=== PATIENT | male | born 1950 | race Caucasian/White ===

== ENCOUNTER 2017-01-03 09:12 | Emergency (ER) | payer MEDICARE, BC ==
--- NOTE | 2017-01-03 09:37 | ED Physician Documentation ---
PD HPI Fall - Stated complaint Stated Complaint: GLF/ANKLE AND RIB PX - Chief complaint Chief Complaint: General - History obtained from History obtained from: Patient - History of Present Illness Mechanism of injury: Tripped Fall distance: Standing position Where injury occurred: Other (in his wifes hospital room) Timing - onset: Today Injury(ies) location: Chest, Right Lower Extremity Quality of pain: Pain Associated symptoms: No: LOC, AMS, Amnesia, Seizures, Ear drainage, Nasal drainage, Neck pain, Weakness, Paresthesias, Dyspnea, Nausea / vomiting, Hematemesis, Abdominal distension Symptoms improve with: Rest Worsens with: Movement Contributing factors: No: Anticoagulated Similar symptoms before: Has not had sx before Recently seen: Not recently seen - Additional information Additional information: 66 y/o male with a history of diabetes, htn and COPD was visiting his in the hospital and his Croc stuck to the ground and he was propelled forward and fell onto his right side shoving his elbow into his right chest wall. He has pain in his right ankle as well. He is able to bear weight. Review of Systems Constitutional: denies: Fever Eyes: denies: Decreased vision Ears: denies: Ear pain Nose: denies: Congestion Cardiac: reports: Chest pain / pressure Respiratory: denies: Dyspnea, Cough GI: denies: Vomiting PD PAST MEDICAL HISTORY - Past Medical History Cardiovascular: Congestive heart failure, Hypertension, Angina, [place], Murmur Respiratory: COPD Neuro: None Endocrine/Autoimmune: Type 2 diabetes GI: GERD : None HEENT: Chronic hearing loss Psych: Depression, Panic attacks Musculoskeletal: Osteoarthritis, Chronic back pain Derm: Other - Past Surgical History Past Surgical History: Yes General: Hiatal hernia repair Ortho: Knee replacement, Arthroscopic surgery, Spine surgery, Other HEENT: Cataracts Derm: Skin grafts, Skin cancer surgery - Present Medications Home Medications: Ambulatory Orders Medication Instructions Recorded Confirmed Fosinopril Sodium 10 mg PO DAILY 01/11/13 01/03/17 Insulin Glargine [Lantus Solostar] 30 unit SQ BID 01/11/13 01/03/17 Magnesium Oxide [Mag Ox] 400 mg PO DAILY 01/11/13 01/03/17 Methadone HCl 20 mg PO QID 01/11/13 01/03/17 Metoprolol Succinate [Toprol Xl] 100 mg PO DAILY 01/11/13 01/03/17 Potassium Chloride [K-Dur] 40 meq PO BIDWM 01/11/13 01/03/17 Torsemide 100 mg PO DAILY 01/11/13 01/03/17 hydroCHLOROthiazide [Hydrodiuril] 25 mg PO DAILY 01/11/13 01/03/17 Clopidogrel Bisulfate [Plavix] 75 mg PO DAILY 03/28/15 01/03/17 HYDROmorphone [Dilaudid] 8 - 16 mg PO Q8HR PRN 03/28/15 01/03/17 Insulin Lispro [Humalog] 4 - 12 unit SQ TID 03/28/15 01/03/17 Pantoprazole [Protonix] 40 mg PO DAILY 03/28/15 01/03/17 Albuterol 1 - 2 puffs INH Q4HR PRN 08/30/15 01/03/17 - Allergies Allergies/Adverse Reactions: Allergies Allergy/AdvReac Type Severity Reaction Status Date / Time aspirin Allergy Severe Edema Verified 01/03/17 09:45 Penicillins Allergy Severe Edema Verified 01/03/17 09:45 NSAIDS (Non-Steroidal Allergy Intermediate Edema Verified 01/03/17 09:45 Anti-Inflamma - Social History Does the pt smoke?: No Smoking Status: Former smoker Does the pt drink ETOH?: No Does the pt have substance abuse?: No - Immunizations Immunizations are current?: Yes - POLST Patient has POLST: No POLST Status: Full Code PD ED PE NORMAL - Vitals Vital signs reviewed: Yes (hypertensive) - General General: Alert and oriented X 3, Well developed/nourished, Other (The patient appears to be splinting in pain with breathing ) - HEENT HEENT: Atraumatic, PERRL - Neck Neck: Supple, no meningeal sign - Cardiac Cardiac: RRR, No murmur - Respiratory Respiratory: No respiratory distress, Clear bilaterally, Other (There is specific point tenderness to the right chest wall ) - Back Back: No CVA TTP, No spinal TTP - Derm Derm: Normal color, Warm and dry, No rash - Extremities Extremities: No deformity, Other (There is edema bilaterally and there are compression stockings in place. The swelling on the right is worse than the left and this is chronic. There is some pain to dorsiflexion and some pain to the anterior ankle as well. ) - Neuro Neuro: No motor deficit, No sensory deficit - Psych Psych: Normal mood, Normal affect Results - Vitals Vitals: Vital Signs - 24 hr 01/03/17 01/03/17 09:24 11:43 Temperature 36.6 C Heart Rate 84 67 Respiratory 18 20 Rate Blood Pressure 146/76 H 108/66 O2 Saturation 98 96 Oxygen O2 Source Room air - Rads (name of study) right ankle Radiology: Prelim report reviewed (Impression: 1. No fracture identified. 2. Extensive degenerative changes in the mid and hindfoot.), EMP read indepedently , See rad report With PA chest right Radiology: Prelim report reviewed (Impression: No rib fracture.), EMP read indepedently, See rad report Right shoulder Radiology: Prelim report reviewed (Impression: 1. Amorphous calcification at the insertion site of the rotator cuff to the greater tuberosity which may represent hydroxyapatite deposition disease. 2. No acute fracture identified. 3. Minimal degenerative changes of the acromioclavicular joint.), EMP read indepedently, See rad report PD MEDICAL DECISION MAKING - ED course Complexity details: reviewed old records, reviewed results, re-evaluated patient , considered differential, d/w patient, d/w family ED course: 66 y/o male with GLF with a rib contusion, ankle sprain and shoulder sprain is able to ambulate with his cane in his other hand. Departure - Departure Disposition: 01 Home, Self Care Clinical Impression: Chest wall contusion Qualifiers: Encounter type: initial encounter Laterality: right Qualified Code(s): S20.211A - Contusion of right front wall of thorax, initial encounter Ankle sprain Qualifiers: Encounter type: initial encounter Involved ligament of ankle: calcaneofibular ligament Laterality: right Qualified Code(s): S93.411A - Sprain of calcaneofibular ligament of right ankle, initial encounter Shoulder sprain Qualifiers: Encounter type: initial encounter Shoulder sprain type: unspecified sprain Laterality: right Qualified Code(s): S43.401A - Unspecified sprain of right shoulder joint, initial encounter Condition: Stable Instructions: ED Contusion Chest Wall, ED Sprain Ankle, ED Contusion Rib Follow-Up: Kyung Pimentel PA [Primary Care Provider] -
[2017-01-03] MEDS ORDERED: ACETAMINOPHEN 500 MG TABLET PO STA (10:00)
[2017-01-03] MEDS ORDERED: ACETAMINOPHEN 500 MG TABLET PO ONE (10:04)
--- NOTE | 2017-01-03 11:22 | XRAY Preliminary Report ---
Exam: XR Shoulder 3 View RT IMPRESSION: 1. Amorphous calcification at the insertion site of the rotator cuff on the greater tuberosity which may represent hydroxyapatite deposition disease. 2. No acute fracture identified. 3. Minimal degenerative changes in the acromioclavicular joint. [facility] SITE ID: [id number]
--- NOTE | 2017-01-03 11:24 | XRAY Preliminary Report ---
Exam: XR Ribs w/PA Chest RT IMPRESSION: No rib fracture. [facility] SITE ID: [id number]
--- NOTE | 2017-01-03 11:24 | XRAY Report ---
EXAM: RIGHT SHOULDER RADIOGRAPHY EXAM DATE: 01/03/2017 11:06 AM. CLINICAL HISTORY: Fall restricted ROM. COMPARISON: None. TECHNIQUE: 4 views. FINDINGS: Bones: Normal. No fracture or bone lesion. Joints: Minimal degenerative changes in the acromioclavicular joint. Soft tissues: Amorphous calcification at the insertion site of the rotator cuff on the greater tubero sity. IMPRESSION: 1. Amorphous calcification at the insertion site of the rotator cuff on the greater tuberosity which may represent hydroxyapatite deposition disease. 2. No acute fracture identified. 3. Minimal degenerative changes in the acromioclavicular joint. [facility] Referring Provider Line: [phone] SITE ID: [id number]
--- NOTE | 2017-01-03 11:25 | XRAY Preliminary Report ---
Exam: XR Ankle 3 View RT IMPRESSION: 1. No fracture identified. 2. Extensive degenerative changes in the mid and hindfoot. [facility] SITE ID: [id number]
--- NOTE | 2017-01-03 11:26 | XRAY Report ---
EXAM: RIGHT RIB AND PA CHEST RADIOGRAPHY EXAM DATE: 01/03/2017 11:05 AM. CLINICAL HISTORY: Fall rib pain. COMPARISON: None. TECHNIQUE: 2 views. FINDINGS: Bones: Normal. No fracture or bone lesion. Lungs: No focal opacities evident. No pneumothorax or pleural effusions. Mediastinum: Heart and cardiomediastinal contours are unremarkable. Other: Amorphous calcifications at the insertion site of the rotator cuff on the greater tuberosity. Vertical striations throughout the PA chest radiograph are thought to be artifactual. IMPRESSION: No rib fracture. [facility] Referring Provider Line: [phone] SITE ID: [id number]
--- NOTE | 2017-01-03 11:28 | XRAY Report ---
EXAM: RIGHT ANKLE RADIOGRAPHY EXAM DATE: 01/03/2017 11:05 AM. CLINICAL HISTORY: Fall ankle and foot pain. COMPARISON: None. TECHNIQUE: 3 views. FINDINGS: Bones: Normal. No fractures or bone lesions. Joints: Degenerative changes at the tibiotalar joint, talar navicular joint and midfoot. Soft Tissues: Soft tissue swelling about the ankle. IMPRESSION: 1. No fracture identified. 2. Extensive degenerative changes in the mid and hindfoot. [facility] Referring Provider Line: [phone] SITE ID: [id number]
[2017-01-03 11:43] VITALS: BP 108/66
== END 2017-01-03 13:18 | disposition home or self-care (01) ==
LOC: ED 09:12
DX: S20.211A Contusion of right front wall of thorax, initial encounter (principal); S93.411A Sprain of calcaneofibular ligament of right ankle, initial encounter; S43.401A Unspecified sprain of right shoulder joint, initial encounter; I10 Essential (primary) hypertension; E11.9 Type 2 diabetes mellitus without complications; Z87.891 Personal history of nicotine dependence; W01.10XA Fall on same level from slipping, tripping and stumbling with subsequent striking against unspecified object, initial encounter; Y92.230 Patient room in hospital as the place of occurrence of the external cause; Z79.4 Long term (current) use of insulin
CPT/HCPCS: 71101; 73030; 73610; 99283; 99284; A9270

== ENCOUNTER 2017-01-09 11:14 | Outpatient (CLI) | payer MEDICARE, BC | END 2017-01-09 11:15 | disposition home or self-care (01) | LOC: DI 11:14 | PROVIDERS: ATTEND Internal Medicine | DX: Z01.810 Encounter for preprocedural cardiovascular examination (principal); I50.32 Chronic diastolic (congestive) heart failure | CPT/HCPCS: 93306 ==

== ENCOUNTER 2017-05-14 10:46 | Outpatient (CLI) | payer MEDICARE, BC ==
--- NOTE | 2017-05-14 13:00 | XRAY Report ---
TWO VIEW CHEST: 05/14/2017 CLINICAL INDICATION: COPD. COMPARISON: 01/03/2017. FINDINGS: Frontal and lateral views of the chest demonstrate a normal cardiac silhouette. The lungs are hyperinflated, but clear. No effusion or pneumothorax is present. IMPRESSION: COPD. NO EVIDENCE OF ACUTE CARDIOPULMONARY DISEASE. JOB #: [id number] EXT JOB #:[id number]
== END 2017-05-14 10:47 | disposition home or self-care (01) ==
LOC: DI 10:46
PROVIDERS: ATTEND Physician Assistant
DX: J44.9 Chronic obstructive pulmonary disease, unspecified (principal)
CPT/HCPCS: 71020

== ENCOUNTER 2017-05-28 13:20 | Outpatient (CLI) | payer MEDICARE, BC | END 2017-05-28 13:21 | disposition home or self-care (01) | LOC: SC 13:20 | PROVIDERS: ATTEND Internal Medicine Pulmonary Disease | DX: G47.33 Obstructive sleep apnea (adult) (pediatric) (principal) | CPT/HCPCS: 99213; G0463; 99212 ==

== ENCOUNTER 2017-07-25 15:03 | Emergency (ER) | payer MEDICARE, BC ==
--- NOTE | 2017-07-25 15:48 | ED Physician Documentation ---
History of Present Illness - Stated complaint Stated Complaint: RT LEG CALF PX/SWELLING - Chief complaint Chief Complaint: Resp - History obtained from History obtained from: Patient, Family - History of Present Illness Timing: How many weeks ago (2) Pain level max: 3 Pain level now: 3 Improved by: rest Worsened by: walking - Additonal information Additional information: Patient is a 66-year-old male who presents to the emergency department with right lower extremity swelling status post ankle surgery 4 months ago. He states this is increased over the past 2 weeks. Sent in by his primary care provider to rule out DVT. He is also had some mild chest pain and shortness of breath over the same time. Concern for possible pulmonary embolism. He is unsure if he has a history of congestive heart failure or not. Review of Systems Ten Systems: 10 systems reviewed and negative Constitutional: denies: Fever, Chills Ears: denies: Ear pain Nose: denies: Rhinorrhea / runny nose, Congestion Throat: denies: Sore throat Cardiac: denies: Chest pain / pressure Respiratory: denies: Cough GI: denies: Nausea, Vomiting, Diarrhea Skin: denies: Rash Musculoskeletal: denies: Neck pain, Back pain Neurologic: denies: Headache PD PAST MEDICAL HISTORY - Past Medical History Cardiovascular: Congestive heart failure, Hypertension, Angina, [place], Murmur Respiratory: COPD Neuro: None Endocrine/Autoimmune: Type 2 diabetes GI: GERD : None HEENT: Chronic hearing loss Psych: Depression, Panic attacks Musculoskeletal: Osteoarthritis, Chronic back pain Derm: Other - Past Surgical History Past Surgical History: Yes General: Hiatal hernia repair Ortho: Knee replacement, Arthroscopic surgery, Spine surgery, Other HEENT: Cataracts Derm: Skin grafts, Skin cancer surgery - Present Medications Home Medications: Ambulatory Orders Medication Instructions Recorded Confirmed Fosinopril Sodium 10 mg PO DAILY 01/11/13 07/25/17 Insulin Glargine [Lantus Solostar] 42 unit SQ BID 01/11/13 07/25/17 Methadone HCl 20 mg PO QID 01/11/13 07/25/17 Metoprolol Succinate [Toprol Xl] 100 mg PO DAILY 01/11/13 07/25/17 Potassium Chloride [K-Dur] 40 meq PO BIDWM 01/11/13 07/25/17 Torsemide 100 mg PO DAILY 01/11/13 07/25/17 Clopidogrel Bisulfate [Plavix] 75 mg PO DAILY 03/28/15 07/25/17 HYDROmorphone [Dilaudid] 8 - 16 mg PO Q8HR PRN 03/28/15 07/25/17 Insulin Lispro [Humalog] 4 - 12 unit SQ TID 03/28/15 07/25/17 Pantoprazole [Protonix] 40 mg PO DAILY 03/28/15 07/25/17 Albuterol 1 - 2 puffs INH Q4HR PRN 08/30/15 07/25/17 - Allergies Allergies/Adverse Reactions: Allergies Allergy/AdvReac Type Severity Reaction Status Date / Time aspirin Allergy Severe Edema Verified 07/25/17 15:13 Penicillins Allergy Severe Edema Verified 07/25/17 15:13 NSAIDS (Non-Steroidal Allergy Intermediate Edema Verified 07/25/17 15:13 Anti-Inflamma - Social History Does the pt smoke?: No Smoking Status: Never smoker Does the pt drink ETOH?: No Does the pt have substance abuse?: No - Immunizations Immunizations are current?: Yes - POLST Patient has POLST: No POLST Status: Full Code PD ED PE NORMAL - Vitals Vital signs reviewed: Yes - General General: Alert and oriented X 3 - HEENT HEENT: Moist mucous membranes - Neck Neck: Supple, no meningeal sign - Cardiac Cardiac: RRR, Strong equal pulses - Respiratory Respiratory: No respiratory distress, Clear bilaterally - Abdomen Abdomen: Soft, Non tender, Non distended - Derm Derm: Warm and dry - Extremities Extremities: Other (2+ non-pitting edema to the RLE.) - Neuro Neuro: Alert and oriented X 3 - Psych Psych: Normal mood, Normal affect Results - Vitals Vitals: Vital Signs - 24 hr 07/25/17 07/25/17 15:11 17:13 Temperature 36.9 C 36.8 C Heart Rate 82 75 Respiratory 20 18 Rate Blood Pressure 144/71 H 119/64 O2 Saturation 97 98 Oxygen O2 Source Room air - EKG (time done) 1518 Rate: Rate (enter#) (83) Rhythm: NSR, Other (PVC) [place]: Normal Intervals: Normal NM QRS: Normal Ischemia: Normal ST segments - Labs Labs: Laboratory Tests 07/25/17 07/25/17 07/25/17 15:35 15:35 15:35 WBC 7.7 RBC 4.68 L Hgb 10.3 L Hct 31.8 L MCV 67.8 L MCH 22.0 L MCHC 32.4 RDW 19.7 H Plt Count 280 MPV 7.3 L Neut # 5.3 Lymph # 1.7 [place] # 0.4 Eos # 0.2 Baso # 0.1 Absolute Nucleated RBC 0.00 Nucleated RBC % 0.0 Manual Slide Review Indicated Platelet Estimate NORMAL (130-450,000) Platelet Morphology NORMAL APPEARANCE RBC Morph Micro Appear 2+ OVALOCYTES Sodium 139 Potassium 3.5 Chloride 96 L Carbon Dioxide 33 H Anion Gap 10.0 BUN 20 Creatinine 0.8 Estimated GFR (MDRD) 97 Glucose 135 H Calcium 8.9 Total Bilirubin 0.7 AST 20 ALT 13 Alkaline Phosphatase 103 Troponin I < 0.04 B-Natriuretic Peptide Total Protein 7.2 Albumin 3.7 Globulin 3.5 Albumin/Globulin Ratio 1.1 Lipase 20 L 07/25/17 15:35 WBC RBC Hgb Hct MCV MCH MCHC RDW Plt Count MPV Neut # Lymph # [place] # Eos # Baso # Absolute Nucleated RBC Nucleated RBC % Manual Slide Review Platelet Estimate Platelet Morphology RBC Morph Micro Appear Sodium Potassium Chloride Carbon Dioxide Anion Gap BUN Creatinine Estimated GFR (MDRD) Glucose Calcium Total Bilirubin AST ALT Alkaline Phosphatase Troponin I B-Natriuretic Peptide 18 Total Protein Albumin Globulin Albumin/Globulin Ratio Lipase - Rads (name of study) CTPA Radiology: Prelim report reviewed, EMP read contemporaneously, See rad report ( Negative for pulmonary embolism at this time. Unremarkable aorta. ) RLE US Radiology: Prelim report reviewed, EMP read contemporaneously, See rad report ( No evidence for deep venous thrombosis. Bakers cyst) PD MEDICAL DECISION MAKING - ED course Complexity details: reviewed results, re-evaluated patient, considered differential, d/w patient ED course: Patient is a 66-year-old male who presents to the emergency department with right lower extremity swelling as well as mild dyspnea for the past few weeks. Sent in to rule out DVT and PE. CT angiogram is negative. Duplex ultrasound reveals a Andrews's cyst behind the right knee. No DVT. He will continue supportive care and follow-up with his doctor. No evidence of heart failure as well. Patient counseled regarding signs and symptoms for which I believe and urgent re-evaluation would be necessary. Patient with good understanding of and agreement to plan and is comfortable going home at this time This document was made in part using voice recognition software. While efforts are made to proofread this document, sound alike and grammatical errors may occur. Departure - Departure Disposition: 01 Home, Self Care Clinical Impression: Peripheral edema Dyspnea Qualifiers: Dyspnea type: unspecified Qualified Code(s): R06.00 - Dyspnea, unspecified Condition: Good Instructions: ED Edema Legs Bilateral Follow-Up: Kyung Pimentel PA [Primary Care Provider] - Within 1 week Comments: Your blood work, CAT scan and ultrasound do not reveal any significant abnormalities that would be causing your symptoms. Follow-up with your doctor for further evaluation and care. Discharge Date/Time: 07/25/17 18:20
[2017-07-25 15:50] LABS: BASOPHILS # (AUTO) 0.1 10^3/uL (0.0-0.1); BASOPHILS % (AUTO) 0.9 %; EOSINOPHILS # (AUTO) 0.2 10^3/uL (0.0-0.7); EOSINOPHILS % (AUTO) 2.3 %; HGB - HEMOGLOBIN 10.3 g/dL (14.0-18.0); LYMPHOCYTES # (AUTO) 1.7 10^3/uL (1.5-3.5); LYMPHOCYTES % (AUTO) 22.4 %; MEAN CORPUSCULAR HGB CONC 32.4 g/dL (32.0-36.0); MEAN CORPUSCULAR VOLUME 67.8 fL (80.0-94.0); MEAN PLATELET VOLUME 7.3 fL (7.4-11.4); MONOCYTES # (AUTO) 0.4 10^3/uL (0.0-1.0); MONOCYTES % (AUTO) 4.7 %; NEUTROPHILS # (AUTO) 5.3 10^3/uL (1.5-6.6); NEUTROPHILS % (AUTO) 69.7 %; PLT - PLATELET COUNT 280 10^3/uL (130-450); RED BLOOD COUNT 4.68 10^6/uL (4.70-6.10); RED CELL DISTRIBUTION WIDTH 19.7 % (12.0-15.0); WHITE BLOOD COUNT 7.7 x10^3/uL (4.8-10.8)
[2017-07-25 15:59] LABS: ALBUMIN 3.7 g/dL (3.2-5.5); ALBUMIN/GLOBULIN RATIO 1.1 (1.0-2.2); BILIRUBIN,TOTAL 0.7 mg/dL (0.2-1.0); CALCIUM 8.9 mg/dL (8.5-10.3); CREATININE 0.8 mg/dL (0.6-1.2); TOTAL PROTEIN 7.2 g/dL (6.7-8.2)
[2017-07-25] MEDS ORDERED: IOPAMIDOL-300 100 ML VIAL ONE (16:03)
[2017-07-25 16:16] LABS: PLATELET ESTIMATE, MANUAL NORMAL (130-450,000) (NORMAL); PLATELET MORPHOLOGY NORMAL APPEARANCE (NORMAL)
[2017-07-25] MEDS ORDERED: IOPAMIDOL-300 100 ML VIAL IVP ONE (16:29)
--- NOTE | 2017-07-25 16:50 | CT Report ---
EXAM: CT ANGIOGRAM CHEST EXAM DATE: 07/25/2017 04:30 PM. CLINICAL HISTORY: Chest pain, dyspnea s/p surgery. COMPARISON: None. TECHNIQUE: Routine helical imaging was performed through the chest in the pulmonary arterial phase. I V Contrast: 80 cc Isovue 300. Reconstructions: Sagittal, coronal, and 3-D MIP. In accordance with CT protocol optimization, one or more of the following dose reduction techniques w ere utilized for this exam: automated exposure control, adjustment of mA and/or KV based on patient s ize, or use of iterative reconstructive technique. FINDINGS: Pulmonary Arteries: Diagnostic quality: Adequate through the segmental arteries. No evidence for acute or chronic pulmona ry emboli. Cannot exclude lesions of smaller vessels. Mild dilation of main pulmonary artery measurin g 3.4 cm, compatible with pulmonary artery hypertension. RV/LV is within normal limits. There is no interventricular septal bowing. There is no reflux of cont rast material in the IVC. Lungs/Pleura: No definite localized infiltrate, consolidation, effusion, or pneumothorax. Mediastinum: Mild cardiomegaly. No pericardial effusion. No coronary calcification. No lymphadenopath y. Thoracic Aorta: Unremarkable. Upper Abdomen: Left renal cysts. Otherwise unremarkable. Other: None. IMPRESSION: Negative for pulmonary embolism at this time. Unremarkable aorta. [facility] Referring Provider Line: [phone] SITE ID: [id number]
[2017-07-25 17:18] VITALS: BP 119/64
--- NOTE | 2017-07-25 17:38 | Ultrasound Report ---
EXAM: RIGHT LOWER EXTREMITY VENOUS ULTRASOUND EXAM DATE: 07/25/2017 05:04 PM. CLINICAL HISTORY: RLE swelling s/p R ankle surgery. COMPARISON: None. TECHNIQUE: Real-time sonographic vascular imaging was performed by the reserve operator through the lower extremity utilizing both color-flow and Doppler spectral analysis. Multiple outbound sales representative static bernabe ges were saved for review. FINDINGS: Common Femoral Vein (CFV): Normal. CFV-GSV Junction: Normal. Profunda Femoral Vein (PFV): Normal. Femoral Vein (FV) Prox: Normal. Femoral Vein (FV) Mid: Normal. Femoral Vein (FV) Dist: Normal. Popliteal Vein: Normal. Posterior Tibial Veins: Limited visualization. Peroneal Veins: Limited visualization. Other: Popliteal fluid collection noted 7.0 x 1.7 x 1.8 cm. IMPRESSION: 1. No evidence for deep venous thrombosis. 2. Andrews's cyst. [facility] Referring Provider Line: [phone] SITE ID: [id number]
== END 2017-07-25 18:20 | disposition home or self-care (01) ==
LOC: ED 15:03
DX: R60.9 Edema, unspecified (principal); R06.00 Dyspnea, unspecified; M71.21 Synovial cyst of popliteal space [Baker], right knee; I11.0 Hypertensive heart disease with heart failure; I50.9 Heart failure, unspecified; E11.9 Type 2 diabetes mellitus without complications; Z79.4 Long term (current) use of insulin; I25.2 Old myocardial infarction; J44.9 Chronic obstructive pulmonary disease, unspecified; K21.9 Gastro-esophageal reflux disease without esophagitis; M19.90 Unspecified osteoarthritis, unspecified site; Z85.828 Personal history of other malignant neoplasm of skin
CPT/HCPCS: 36415; 71275; 80053; 83690; 83880; 84484; 85025; 93005; 93971; 99283; 99284; Q9967

== ENCOUNTER 2017-09-26 20:52 | Outpatient (CLI) | payer MEDICARE, BC | END 2017-09-26 20:53 | disposition home or self-care (01) | LOC: SC 20:52 | PROVIDERS: ATTEND Internal Medicine Pulmonary Disease | DX: G47.33 Obstructive sleep apnea (adult) (pediatric) (principal) | CPT/HCPCS: 95810 ==

== ENCOUNTER 2017-10-23 09:03 | Outpatient (CLI) | payer MEDICARE, BC | END 2017-10-23 09:04 | disposition home or self-care (01) | LOC: SC 09:03 | PROVIDERS: ATTEND Nurse Practitioner Family | DX: G47.33 Obstructive sleep apnea (adult) (pediatric) (principal) | CPT/HCPCS: 99214; G0463; 99212 ==

== ENCOUNTER 2017-11-29 10:18 | Outpatient (CLI) | payer MEDICARE, BC | END 2017-11-29 10:19 | disposition home or self-care (01) | LOC: SC 10:18 | PROVIDERS: ATTEND Nurse Practitioner Family | DX: G47.33 Obstructive sleep apnea (adult) (pediatric) (principal) | CPT/HCPCS: 99214; G0463; 99212 ==

== ENCOUNTER 2017-12-21 10:05 | Outpatient (CLI) | payer MEDICARE, BC ==
[2017-12-21 10:45] LABS: % IRON SATURATION 6 % (20-50); IRON 28 ug/dL (45-182); TOTAL IRON BINDING CAPACITY 447 ug/dL (250-450); TRANSFERRIN 319 mg/dL (180-329)
== END 2017-12-21 10:06 | disposition home or self-care (01) ==
LOC: LAB 10:05
PROVIDERS: ATTEND Internal Medicine Cardiovascular Disease
DX: D64.9 Anemia, unspecified (principal)
CPT/HCPCS: 36415; 82728; 83540; 84466

== ENCOUNTER 2018-02-16 08:48 | Outpatient (CLI) | payer MEDICARE, BC ==
[2018-02-16 09:19] LABS: CALCIUM 8.8 mg/dL (8.5-10.3)
== END 2018-02-16 08:49 | disposition home or self-care (01) ==
LOC: LAB 08:48
PROVIDERS: ATTEND Internal Medicine Cardiovascular Disease
DX: I50.9 Heart failure, unspecified (principal)
CPT/HCPCS: 36415; 80048

== ENCOUNTER 2018-08-21 09:51 | Outpatient (CLI) | payer MEDICARE, BC ==
[2018-08-21] MEDS ORDERED: REGADENOSON 0.4 MG/5 ML SYRINGE IVP ONE ×2 (12:17→14:19)
--- NOTE | 2018-08-21 13:41 | CARDIAC PROCEDURE NOTE ---
DATE OF SERVICE: 08/21/2018 Physician: Paula Trujillo MD, [facility] ORDERING PROVIDER: Toby Argueta M.D. INDICATIONS: Palpitations, chest pain, fatigue. CARDIAC RISK FACTORS: Obesity, male gender, hypertension, diabetes, family history of heart disease, remote smoker. DESCRIPTION OF PROCEDURE: After signing informed consent, the patient underwent a Lexiscan pharmaceutical stress test with nuclear myocardial perfusion imaging. He had brief flushing, lightheadedness, nausea, and shortness of breath. He had no chest pain. He did not complain of "palpitations." Resting heart rate: 76. Peak heart rate: 91. Resting blood pressure: 128/66. Peak blood pressure: 170/70. RESTING EKG: Normal sinus rhythm, left atrial enlargement, rare PVC, early repolarization. EKG AT [facility]: No new ST segment or T-wave changes. SUMMARY: 1. Abnormal resting EKG. 2. No ischemic changes by EKG criteria on this pharmacologic stress test. 3. Nuclear images reported separately. TD: 08/21/2018 13:07 ANASTASIA
--- NOTE | 2018-08-21 15:01 | Nuclear Medicine Report ---
Reason: PALPITATIONS, FATIGUE Procedure Date: 08/21/2018 Accession Number: [id number] / [id number] Procedure: NM - Myocardial Perfusion STR/RST CPT Code: FULL RESULT: EXAM: SINGLE-ISOTOPE PHARMACOLOGICAL STRESS TEST WITH REGADENOSON. SINGLE-ISOTOPE AND ONE-DAY REST/STRESS MYOCARDIAL PERFUSION SCANS WITH TOMOGRAPHIC IMAGING, QUANTITATIVE ANALYSIS, WALL MOTION ANALYSIS AND CALCULATION OF EJECTION FRACTION. EXAM DATE: 08/21/2018 02:21 PM. CLINICAL HISTORY: PALPITATIONS, FATIGUE. COMPARISON: None available. TECHNIQUE: After the intravenous administration of 9.5 mCi of Tc-99m sestamibi, a rest myocardial perfusion scan was done with tomography. Motion correction was applied when appropriate. After an appropriate delay, pharmacological stress was performed with the infusion of 0.4 mg regadenoson per protocol. According to protocol, 40.2 mCi of Tc-99m sestamibi was injected for stress myocardial perfusion scan. Motion correction was applied when appropriate. Gated tomographic images were obtained for wall motion analysis and computation of left ventricular ejection fraction. FINDINGS: Images showed decreased activity in the apex and distal inferior wall, without significant change between the rest and stress images. Computer analysis: Summed stress score 6 Summed rest score 5 Summed difference score 1 Wall motion analysis demonstrates no focal wall motion abnormality. The left ventricular end-diastolic volume is 161 cc. The left ventricular end-systolic volume is 85 cc. The left ventricular ejection fraction is calculated to be 53%. IMPRESSION: 1. Fixed defect in the apex and distal inferior wall, old infarct versus diaphragm attenuation artifact. No significant convincing reversible perfusion defects. 2. Left ventricular ejection fraction of 53%. 3. Normal segmental and global wall motion. 4. Normal left ventricular cavity size, no change with stress. 5. Based on computer analysis, mildly abnormal exam with no ischemia. [facility]
== END 2018-08-21 09:52 | disposition home or self-care (01) ==
LOC: DI 09:51
PROVIDERS: ATTEND Internal Medicine Cardiovascular Disease
DX: R94.39 Abnormal result of other cardiovascular function study (principal); R00.2 Palpitations; R53.83 Other fatigue; E66.9 Obesity, unspecified; I10 Essential (primary) hypertension; E11.9 Type 2 diabetes mellitus without complications; Z87.891 Personal history of nicotine dependence; Z82.49 Family history of ischemic heart disease and other diseases of the circulatory system
CPT/HCPCS: 78452; 93017; A9500; J2785

== ENCOUNTER 2018-12-27 07:16 | Outpatient (CLI) | payer MEDICARE, BC ==
--- NOTE | 2018-12-27 19:38 | Ultrasound Report ---
Reason: LT LOWER LIMB SWELLING, RT LOWER LIMB PAIN Procedure Date: 12/27/2018 Accession Number: [id number] / [id number] Procedure: US - Duplex Ext Veins Bilateral CPT Code: FULL RESULT: EXAM: BILATERAL LOWER EXTREMITY VENOUS ULTRASOUND EXAM DATE: 12/27/2018 07:30 AM. CLINICAL HISTORY: LT LOWER LIMB SWELLING, RT LOWER LIMB PAIN. COMPARISON: None. TECHNIQUE: Real-time sonographic vascular imaging was performed by the heating element repairer through the lower extremities utilizing both color-flow and Doppler spectral analysis. Multiple commissary representative static images were saved for review. FINDINGS: Right: Common Femoral Vein (CFV): Normal. CFV-GSV Junction: Normal. Profunda Femoral Vein (PFV): Normal. Femoral Vein (FV) Prox: Normal. Femoral Vein (FV) Mid: Normal. Femoral Vein (FV) Dist: Normal. Popliteal Vein: Normal. Posterior Tibial Veins: Normal. Peroneal Veins: Normal. Left: Common Femoral Vein (CFV): Normal. CFV-GSV Junction: Normal. Profunda Femoral Vein (PFV): Normal. Femoral Vein (FV) Prox: Normal. Femoral Vein (FV) Mid: Normal. Femoral Vein (FV) Dist: Normal. Popliteal Vein: Normal. Posterior Tibial Veins: Normal. Peroneal Veins: Normal. Other: None. IMPRESSION: No evidence for deep venous thrombosis bilaterally. [facility]
--- NOTE | 2018-12-28 14:13 | Ultrasound Report ---
Reason: LT LOWER LIMB SWELLING, RT LOWER LIMB PAIN Procedure Date: 12/27/2018 Accession Number: [id number] Procedure: US - Duplex Lwr Ext Arterial Bilat CPT Code: FULL RESULT: EXAM: BILATERAL LOWER EXTREMITY ARTERIAL DOPPLER ULTRASOUND EXAM DATE: 12/27/2018 08:02 AM. CLINICAL HISTORY: Left lower limb swelling, right lower limb pain. COMPARISON: 12/27/2018 8:38 AM. 12/27/2018 8:31 AM. 12/27/2018 7:30 AM. TECHNIQUE: Real-time sonographic vascular imaging was performed by the sanforizer, utilizing color-flow, Doppler flow, and spectral analysis. Multiple malt liquors sales representative static images were saved for review. FINDINGS: No significant visualized plaque. Mild elevation of systolic flow velocities in the right common femoral artery which otherwise shows triphasic waveform. Right Leg: DIRECTOR OF ARCHITECTURE: PSV 142 cm/sec. Triphasic waveform. PSFA: PSV 112 cm/sec. Triphasic waveform. MSFA: PSV 106 cm/sec. Triphasic waveform. DSFA: PSV 84 cm/sec. Triphasic waveform. PFA: PSV 92 cm/sec. Triphasic waveform. POP: PSV 91 cm/sec. Triphasic waveform. ARNIE: PSV 97 cm/sec. Triphasic waveform. CLOTH COVERED HELMET PULLER: PSV 134 cm/sec. Triphasic waveform. PER: PSV 88 cm/sec. Triphasic waveform. DPA: PSV 80 cm/sec. Triphasic waveform. Left Leg: DIRECTOR OF ARCHITECTURE: PSV 122 cm/sec. Triphasic waveform. PSFA: PSV 119 cm/sec. Triphasic waveform. MSFA: PSV 142 cm/sec. Triphasic waveform. DSFA: PSV 109 cm/sec. Triphasic waveform. PFA: PSV 121 cm/sec. Biphasic waveform. POP: PSV 104 cm/sec. Triphasic waveform. ARNIE: PSV 78 cm/sec. Biphasic waveform. CLOTH COVERED HELMET PULLER: PSV 123 cm/sec. Triphasic waveform. PER: PSV 100 cm/sec. Triphasic waveform. DPA: PSV 88 cm/sec. Biphasic waveform. IMPRESSION: No evidence of significant stenosis by arterial duplex exam in either lower extremity. RADIA
== END 2018-12-27 07:17 | disposition home or self-care (01) ==
LOC: DI 07:16
PROVIDERS: ATTEND Physician Assistant
DX: M79.604 Pain in right leg (principal); R22.42 Localized swelling, mass and lump, left lower limb
CPT/HCPCS: 93925; 93970

== ENCOUNTER 2019-04-21 15:36 | Outpatient (CLI) | payer MEDICARE, BC | END 2019-04-21 15:37 | disposition critical access hospital (66) | LOC: EMS 15:36 | PROVIDERS: ATTEND Surgery | DX: R10.9 Unspecified abdominal pain (principal); R14.0 Abdominal distension (gaseous); R19.8 Other specified symptoms and signs involving the digestive system and abdomen | CPT/HCPCS: A0425; A0429 ==

== ENCOUNTER 2019-04-21 15:51 | Emergency (ER) | payer MEDICARE, BC ==
[2019-04-21 19:06] VITALS: BP 128/71
--- NOTE | 2019-04-21 19:24 | ED Physician Documentation ---
PD HPI ABD PAIN - Stated complaint Stated Complaint: CONSTIPATION - Chief complaint Chief Complaint: Abd Pain - History obtained from History obtained from: Patient, Family - History of Present Illness Associated symptoms: Constipation. No: Fever, Nausea, Vomiting Recently seen: Not recently seen - Additional information Additional information: This is a 68-year-old man who has chronic constipation but has not been able to have a bowel movement over the past several days. He took 3 different doses of different medications and while waiting here to be seen had 2 large bowel movements and feels normal. He did like to be discharged home. Review of Systems Constitutional: denies: Fever GI: reports: Constipation PD PAST MEDICAL HISTORY - Past Medical History Cardiovascular: Congestive heart failure, Hypertension, Angina, MD, Murmur Respiratory: COPD Endocrine/Autoimmune: Type 2 diabetes GI: GERD : None HEENT: Chronic hearing loss Psych: Depression, Panic attacks Musculoskeletal: Osteoarthritis, Chronic back pain Derm: Other - Past Surgical History Past Surgical History: Yes General: Hiatal hernia repair Ortho: Knee replacement, Arthroscopic surgery, Spine surgery, Other HEENT: Cataracts Derm: Skin grafts, Skin cancer surgery - Present Medications Home Medications: Ambulatory Orders Medication Instructions Recorded Confirmed Insulin Glargine [Lantus Solostar] 42 unit SQ BID 01/11/13 07/25/17 Metoprolol Succinate [Toprol Xl] 100 mg PO DAILY 01/11/13 07/25/17 Potassium Chloride [K-Dur] 40 meq PO BIDWM 01/11/13 07/25/17 RX: Fosinopril Sodium 10 mg PO DAILY 01/11/13 07/25/17 RX: Methadone HCl 20 mg PO QID 01/11/13 07/25/17 RX: Torsemide 100 mg PO DAILY 01/11/13 07/25/17 Clopidogrel Bisulfate [Plavix] 75 mg PO DAILY 03/28/15 07/25/17 Insulin Lispro [Humalog] 4 - 12 unit SQ TID 03/28/15 07/25/17 Pantoprazole [Protonix] 40 mg PO DAILY 03/28/15 07/25/17 RX: Albuterol 1 - 2 puffs INH Q4HR PRN 08/30/15 07/25/17 RX: Morphine Sulfate 1 tab PO Q4HR PRN 11/11/18 11/11/18 - Allergies Allergies/Adverse Reactions: Allergies Allergy/AdvReac Type Severity Reaction Status Date / Time aspirin Allergy Severe Edema Verified 04/21/19 15:56 Penicillins Allergy Severe Edema Verified 04/21/19 15:56 NSAIDS (Non-Steroidal Allergy Intermediate Edema Verified 04/21/19 15:56 Anti-Inflamma - Social History Does the pt smoke?: No Smoking Status: Never smoker Does the pt drink ETOH?: No Does the pt have substance abuse?: No - Immunizations Immunizations are current?: Yes - POLST Patient has POLST: No POLST Status: Full Code PD ED PE NORMAL - Vitals Vital signs reviewed: Yes - General General: Alert and oriented X 3, No acute distress, Well developed/nourished - Cardiac Cardiac: RRR - Respiratory Respiratory: No respiratory distress Results - Vitals Vitals: Vital Signs - 24 hr 04/21/19 04/21/19 15:56 19:05 Temperature 37.2 C Heart Rate 83 75 Respiratory 16 16 Rate Blood Pressure 176/81 H 128/71 O2 Saturation 97 94 Oxygen O2 Source Room air PD MEDICAL DECISION MAKING - ED course ED course: Patient has resolved his own issue by taking medications before he arrived in the emergency department. He is discharged with instructions to follow back up with his primary care provider regarding the chronic constipation. Departure - Departure Disposition: 01 Home, Self Care Clinical Impression: Constipation Qualifiers: Constipation type: unspecified constipation type Qualified Code(s): K59.00 - Constipation, unspecified Condition: Good Instructions: ED Constipation Follow-Up: Kyung Pimentel PA [Primary Care Provider] - Comments: Take the laxatives you have been prescribed by your primary care provider as needed for persistent constipation. Discharge Date/Time: 04/21/19 19:36
== END 2019-04-21 19:36 | disposition home or self-care (01) ==
LOC: ED 15:51
DX: K59.09 Other constipation (principal); I10 Essential (primary) hypertension; E11.9 Type 2 diabetes mellitus without complications; Z79.4 Long term (current) use of insulin
CPT/HCPCS: 99282; 99283

== ENCOUNTER 2019-05-21 17:26 | Outpatient (CLI) | payer MEDICARE, BC ==
--- NOTE | 2019-05-22 13:55 | XRAY Report ---
Reason: COPD Procedure Date: 05/21/2019 Accession Number: [id number] / [id number] Procedure: XR - Chest 2 View X-Ray CPT Code: 05722 FULL RESULT: EXAM: CHEST RADIOGRAPHY EXAM DATE: 05/21/2019 05:58 PM. CLINICAL HISTORY: COPD. Difficulty breathing COMPARISON: CHEST 2 VIEW PA/LAT 05/14/2017 11:38 AM CHEST ANGIO 07/25/2017 4:20 PM. TECHNIQUE: 2 views. FINDINGS: Lungs/Pleura: No focal opacities evident. No pleural effusion. No pneumothorax. Normal volumes. Mediastinum: Heart and mediastinal contours are unremarkable. Other: Degenerative and postsurgical changes in the spine. IMPRESSION: Clear lungs. No acute findings. RADIA
== END 2019-05-21 17:27 | disposition home or self-care (01) ==
LOC: DI 17:26
PROVIDERS: ATTEND Physician Assistant
DX: J44.9 Chronic obstructive pulmonary disease, unspecified (principal)
CPT/HCPCS: 71046

== ENCOUNTER 2019-07-03 12:48 | Outpatient (CLI) | payer MEDICARE, BC ==
[2019-07-03 13:46] VITALS: BP 140/72
--- NOTE | 2019-07-03 13:46 | SLEEP CARE CONSULTATION ---
Information from patient questionnaire entered by Sosa Llanes. I have reviewed and concur with the information entered by Sosa Llanes. This document represents the service I personally performed and the decisions made by me, Kristyn Apple, RN, MSN, CIVIL RIGHTS REPRESENTATIVE. History of Present Illness Previous diagnosis: Moderate, Obstructive Sleep Apnea-Hypopnea Syndrome AHI: 25.7 Reason for follow up: annual Equipment type: CPAP Equipment obtained from: [email or web address] Mask style: Nasal (an old Wisp nasal mask - would like to use the Dreamwear again a more comfortable.) Mask brand: Respironics Backup mask available: No Last cushion change: year ago Prior sleep studies: Yes HPI additional information: They transferred to [facility] and went to office for intake in [place] and no supplies obtained from them even with phone inquiry. No new supplies since obtained from [email or web address] over a year ago. Patient was having difficulty getting supplies from [email or web address] as well. Thus he stopped using CPAP for a while an recently restarted as was not feeling as good without CPAP. CPAP Compliance Data - Data Reviewed with Patient Average duration of nightly device use: 3h 58m Compliance rate %: 70 (past 30 days ) Current pressure setting (cmH2O): 14-18 Humidity settin Heated hose settin Average residual AHI: 8.8 Central apnea: 2.1 Obstructive apnea: 3.8 Hypopnea: 2.9 Average large leak: 9s Subjective Missed days of use due to: reports: other (difficulty getting supplies and mask fit - finally used an old mask style not preferred ) Patient concerns: reports: mask discomfort (generally uncomfortable around nose and headgear around ears due to tightness to keep in place), mask leak noise (wakes 2-3 times ), dry mouth, nose, throat (dry mouth even with chinstrap. But seems too much to wear with nasal mask and chinstrap), other (need different headgear). denies: aerophagia, air blowing in eyes, condensation in mask/hose, epistaxis Observed to snore while using device: No (but sleep separately) Current pressure setting perceived as: too low (intermittently) On therapy, patient: reports: sleeping better, awakening more refreshed, being more awake and alert during the day, more rested overall. denies: drowsiness while driving (does not drive ) Initial [place] Sleepiness Scale score: 21 Current [place] Sleepiness Scale score: 19 Allergies and Home Medications Known drug allergies: Yes (see list ) Home medication list reviewed: Yes Allergy and home medication list: Medication Name (generic/name brand) Strength & Dosage Fluticasone Propionate 50mcg/inh Two sprays each nostril BID Methadone Hydrochloride 10mg tab two QID Torsemide 100mg tab one daily prn Protonix 40mg packet one daily Dilaudid 2mg tab one four q4h PRN pain Ondansetron HCI 8mg tab one q6-8h PRN nausea Humalog KwikPen 100 unit/ml Inject 35 units TID Lantus SoloStar 100 unit/ml Inject 70 units SQ daily ProAir HFA 108 (90 Base) mcg/act Inhale two puffs q4h PRN Potassium Chloride 20meq/15ml twice daily Fosinopril Sodium 20mg tab one daily Methocarbamol 750mg tab one q4h Advair HFA 115-21 mcg/act Two inhalations BID Metoprolol Tartrate 25mg tab one daily chlothizone 25mg daily Review of Systems Review of systems same as previous: Yes Physical Exam Blood Pressure: 140/72 (forgot blood pressure pill ) Cuff size: long Heart Rate: 89 O2 Saturation: 96 Weight: 292 lb (was at 312 pounds earlier this year. ) Weight change since last visit: gained 10 pounds Impression and Plan 1. Obstructive Sleep Apnea-Hypopnea Syndrome, moderate, with good treatment compliance and slightly elevated residual AHI. On CPAP therapy, the patient has better sleep quality and is more rested overall. The patient was not able to get new supplies from last transfer and was so frustrated with not being able to replace his old supplies that he stopped using CPAP for a while when realized he did not feels as well without CPAP. He restarted CPAP use when he found an old mask to use though it is not comfortable as it has to be so tight to reduce mask leaks. He wakes frequently to adjust for mask leaks but states he feels much better overall with CPAP use than without. Thus I will have my coordinator of rehabilitation services inform him of his DME options and make a [facility] transfer order. In addition, I [facility] a [facility] mask to use until can get updated supplies for more comfort and to reduce sleep fragmentation to reduce sleepiness symptoms. A full face mask was chosen as patient is also feeling claustrophobic from needing to use a chinstrap with current nasal mask. It is hoped this new style will be more comfortable overall. In addition I will increase his autoCPAP range to reduce intermittent air hunger and elevated AHI. Patient is to call me if the pressure change is uncomfortable. Patient asked again why he needs to use CPAP and why he feels better using. Patient's apnea severity and rationale for treatment to reduce apnea, improve sleep quality and reduce cardiovascular and cerebrovascular events was reviewed. I also gave him [facility] Snoring and Sleep apnea pamphlet for reference and reviewed it. He is advised to contact me if furhter problems using CPAP. I also reviewed the benefit of consistent device use of CPAP for his hypertension, diabetes. * Change CPAP pressure to [id number] * update supplies * transfer to new DME * Try new sample mask - Dreamwear FFM medium * Notify me if snoring with mask or feeling that the pressure is too much or too little * Attempt to lose weight * Return for follow up in 2 months, or sooner if concerns arise I spent 100% of this 35 minute visit face to face with the patient with greater than 50% of this was spent time counseling the patient and coordination of care. Extra time also taken due to patient hearing deficit.
== END 2019-07-03 12:49 | disposition home or self-care (01) ==
LOC: SC 12:48
PROVIDERS: ATTEND Nurse Practitioner Family
DX: G47.33 Obstructive sleep apnea (adult) (pediatric) (principal)
CPT/HCPCS: 99214; G0463; 99212

== ENCOUNTER 2019-08-15 14:16 | Outpatient (CLI) | payer MEDICARE ==
[2019-08-15 15:19] LABS: ALBUMIN 3.6 g/dL (3.2-5.5); BILIRUBIN,TOTAL 0.6 mg/dL (0.2-1.0); CALCIUM 8.8 mg/dL (8.5-10.3); CREATININE 0.9 mg/dL (0.6-1.2); TOTAL PROTEIN 7.1 g/dL (6.7-8.2)
[2019-08-15 15:27] LABS: HB2 TOTAL 12.6 g/dL; HEMOGLOBIN A1C 0.9 g/dL; HEMOGLOBIN A1C % 8.7 % (4.6-6.2)
== END 2019-08-15 14:17 | disposition home or self-care (01) ==
LOC: LAB 14:16
PROVIDERS: ATTEND Internal Medicine
DX: E11.9 Type 2 diabetes mellitus without complications (principal); Z79.899 Other long term (current) drug therapy
CPT/HCPCS: 36415; 80053; 83036

== ENCOUNTER 2019-10-13 11:46 | Outpatient (CLI) | payer MEDICARE | END 2019-10-13 11:47 | disposition home or self-care (01) | LOC: COV 11:46 | PROVIDERS: ATTEND Family Medicine | DX: R50.9 Fever, unspecified (principal); R05 Cough | CPT/HCPCS: 81599; U0002 ==

== ENCOUNTER 2020-01-21 11:54 | Outpatient (CLI) | payer MEDICARE | END 2020-01-21 11:55 | disposition short-term general hospital (02) | LOC: EMS 11:54 | PROVIDERS: ATTEND Surgery | DX: R07.89 Other chest pain (principal); R06.00 Dyspnea, unspecified; R53.1 Weakness | CPT/HCPCS: A0425; A0429 ==

== ENCOUNTER 2020-03-17 14:08 | Outpatient (CLI) | payer MEDICARE ==
--- NOTE | 2020-03-17 15:16 | SLEEP CARE CONSULTATION ---
Information from patient questionnaire entered by Clara Mack. I have reviewed and concur with the information entered by Clara Mack. This document represents the service I personally performed and the decisions made by me, Deann Rees ARNP. History of Present Illness Service Date and Time: 03/17/2020 1408 Previous diagnosis: Moderate, Obstructive Sleep Apnea-Hypopnea Syndrome AHI: 25.7 Reason for follow up: other (4-month followup pressure change) Equipment type: CPAP Equipment obtained from: Other (no supplier for supplies right now) Mask style: Nasal Backup mask available: Yes (old mask) Last cushion change: last week Prior sleep studies: Yes Type of Sleep Study: Polysomnography HPI additional information: GWEN KHAN was diagnosed to have moderate, AHI 25.7, obstructive sleep apnea- hypopnea syndrome and returned today for CPAP therapy first compliance after updating device follow-up. Sleep Study - Results Prior sleep studies: Yes CPAP Compliance Data - Data Reviewed with Patient Average duration of nightly device use: 2 h 52 min Compliance rate %: 23.3 Current pressure setting (cmH2O): 16-18 Humidity settin Heated hose settin Average residual AHI: 10.2 Central apnea: 1.8 Obstructive apnea: 3.8 Average large leak: 20 min 22 sec Compliance data discussion: He has not been able to get supplies and he states that he does not know who he is suppose to get them from. He states he has been using his 's supplies because he has not gotten any for himself since right after June 2019. His gets her supplies from [employer]. He states she has called about supplies for him in the past but did not receive any new supplies. Subjective Patient concerns: reports: dry mouth, nose, throat (if he breathes through mouth he gets really dry; he is using chin strap and had other masks that cover mouth that do not help with mouth dryness). denies: aerophagia, mask discomfort, air blowing in eyes, mask leak noise, condensation in mask/hose, nasal congestion, epistaxis, other Observed to snore while using device: No Current pressure setting perceived as: comfortable On therapy, patient: reports: sleeping better, awakening more refreshed, being more awake and alert during the day, more rested overall, other (he sleeps an hour at a time, states it due to the dryness). denies: drowsiness while driving Initial [place] Sleepiness Scale score: 21 (in 2013) Current [place] Sleepiness Scale score: 6 Allergies and Home Medications Drug allergies reviewed: Yes (aspirin, penicillins, Nsaids) Home medication list reviewed: Yes (no changes) Review of Systems Review of systems same as previous: No (stroke last November with some residual numbness in right hand) Cardiovascular: reports: high blood pressure Neurological: reports: other (stroke in November 2019) Ear/Nose/Throat: reports: dry mouth/throat Endocrine: reports: other (diabetes) Physical Exam Heart Rate: 69 O2 Saturation: 95 Height: 5 ft 11 in Weight: 275 lb Body Mass Index: 38.3 BMI Classification: Obese Impression and Plan 1. Obstructive Sleep Apnea-Hypopnea Syndrome, moderate, with poor treatment compliance and fair apnea control, but has elevated residual AHI. On CPAP therapy, there is improved sleep quality and feels more rested overall. 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 He has not felt as improved on his rest for some time but has been unable to tolerate wearing his mask more than an hour at a time due to mouth dryness. He has his humidity up to 5 and the heated hose at 4. I instructed him to reduced the heated hose to get more moisture into his nose and mouth and hopefully improve the dryness. He is using a chinstrap with the nasal cushion mask to hold his mouth closed but still gets this dry feeling that is awakening him. This is definitely affecting his ability to be compliant. Patient expresses that he wants to be able to use the machine but the dryness in his mouth prevents him for using it 4 or more hours a night. He has no complaints about pressure but due to an elevated residual AHI at 10.2, I am increasing his CPAP pressure range to see if this will decrease his residual AHI. Patient's apnea severity and rationale for treatment to reduce apnea, improve sleep quality and reduce cardiovascular and cerebrovascular events was reviewed. I also reviewed the benefit of consistent device use of CPAP for hypertension, cardiac disease, cerebrovascular disease, and diabetes. Change auto CPAP pressure at 16-20 cm H2O. Notify me if snoring with the mask or feeling that the pressure is too much or too little. Attempt to lose weight. Patient to reduce heated hose setting until mouth dryness improves Return for follow-up in 1 month, or sooner if concerns arise. Visit Type: In Office Time Spent with Patient (minutes): 30 Provider Statement: I spent 100% of the Face to Face Visit with the patient with greater than 50% spent counseling the patient and coordination of care.
== END 2020-03-17 14:09 | disposition home or self-care (01) ==
LOC: SC 14:08
PROVIDERS: ATTEND Nurse Practitioner Family
DX: G47.33 Obstructive sleep apnea (adult) (pediatric) (principal); E66.9 Obesity, unspecified; Z68.38 Body mass index [BMI] 38.0-38.9, adult
CPT/HCPCS: 99213; G0463; 99212

== ENCOUNTER 2020-09-28 20:19 | Outpatient (CLI) | payer MEDICARE | END 2020-09-28 20:20 | disposition home or self-care (01) | LOC: EMS 20:19 | PROVIDERS: ATTEND Emergency Medicine | DX: E16.2 Hypoglycemia, unspecified (principal); R61 Generalized hyperhidrosis | CPT/HCPCS: A0425; A0427 ==

== ENCOUNTER 2020-09-28 20:33 | Emergency (ER) | payer MEDICARE ==
--- NOTE | 2020-09-28 20:45 | ED Physician Documentation ---
PD HPI ABD PAIN - Stated complaint Stated Complaint: LOW BLOOD SUGAR - Chief complaint Chief Complaint: General - History obtained from History obtained from: Patient - History of Present Illness Timing - onset: How many hours ago (several hours ago - had onset of feeling general weakness, lightheaded and sweaty. Noted blood sugar was low and ate some food, had glucose, but BS remained lower. Had mid abd cramping with nausea. Called EMS and they noted BS low and did not increase despite IV glucose and glucose orally.) Timing - duration: Hours (few) Timing - details: Gradual onset, Still present (pt denies change in diet today, nor any change in insulin dosing. Quite sure he did not double dose or such. No other new meds. Has had low blood sugar at times in the past if did not eat well, but it would increase right off with PO sugar/eating.) Quality: Cramping, Aching, Pain Radiation: No: Chest, Lower back, Left flank, Right flank Improved by: No: Laying still Worsened by: No: Moving Associated symptoms: Nausea. No: Fever, Vomiting, Diarrhea Similar symptoms before: Has not had sx before Recently seen: Not recently seen Review of Systems Constitutional: denies: Fever, Chills Nose: denies: Rhinorrhea / runny nose, Congestion Throat: denies: Sore throat Cardiac: denies: Chest pain / pressure, Palpitations Respiratory: denies: Cough GI: reports: Abdominal Pain, Nausea. denies: Abdominal Swelling, Vomiting, Constipation, Diarrhea : denies: Dysuria, Frequency Neurologic: reports: Generalized weakness. denies: Focal weakness, Numbness, Near syncope PD PAST MEDICAL HISTORY - Past Medical History Cardiovascular: Congestive heart failure, Hypertension, Angina, NE, Murmur Respiratory: COPD Neuro: None Endocrine/Autoimmune: Type 2 diabetes GI: GERD : None HEENT: Chronic hearing loss Psych: Depression, Panic attacks Musculoskeletal: Osteoarthritis, Chronic back pain Derm: Other - Past Surgical History Past Surgical History: Yes General: Hiatal hernia repair Ortho: Knee replacement, Arthroscopic surgery, Spine surgery, Other HEENT: Cataracts Derm: Skin grafts, Skin cancer surgery - Present Medications Home Medications: Ambulatory Orders Medication Instructions Recorded Confirmed Fosinopril Sodium 10 mg PO DAILY 01/11/13 07/25/17 Insulin Glargine [Lantus Solostar] 42 unit SQ BID 01/11/13 07/25/17 Methadone HCl 20 mg PO QID 01/11/13 07/25/17 Metoprolol Succinate [Toprol Xl] 100 mg PO DAILY 01/11/13 07/25/17 Potassium Chloride [K-Dur] 40 meq PO BIDWM 01/11/13 07/25/17 Torsemide 100 mg PO DAILY 01/11/13 07/25/17 Clopidogrel Bisulfate [Plavix] 75 mg PO DAILY 03/28/15 07/25/17 Insulin Lispro [Humalog] 4 - 12 unit SQ TID 03/28/15 07/25/17 Pantoprazole [Protonix] 40 mg PO DAILY 03/28/15 07/25/17 Albuterol 1 - 2 puffs INH Q4HR PRN 08/30/15 07/25/17 Morphine Sulfate 1 tab PO Q4HR PRN 11/11/18 11/11/18 Docusate Sodium 100Mg Capsule 100 mg PO DAILY #20 cap 09/29/20 [Colace 100Mg Capsule] HYDROmorphone [Dilaudid] 8 mg PO Q6H 09/29/20 09/29/20 - Allergies Allergies/Adverse Reactions: Allergies Allergy/AdvReac Type Severity Reaction Status Date / Time aspirin Allergy Severe Edema Verified 09/28/20 20:43 Penicillins Allergy Severe Edema Verified 09/28/20 20:43 NSAIDS (Non-Steroidal Allergy Intermediate Edema Verified 09/28/20 20:43 Anti-Inflamma - Social History Does the pt smoke?: No Smoking Status: Never smoker Does the pt drink ETOH?: No Does the pt have substance abuse?: No - Immunizations Immunizations are current?: Yes - POLST Patient has POLST: No POLST Status: Full Code PD ED PE NORMAL - General General: Alert and oriented X 3, Well developed/nourished - HEENT HEENT: Moist mucous membranes, Pharynx benign - Neck Neck: Supple, no meningeal sign, No adenopathy - Cardiac Cardiac: RRR, No murmur - Respiratory Respiratory: Clear bilaterally - Abdomen Abdomen: Soft, Non distended, No organomegaly, Other (tender mid abdomen without percussion nor rebound tenderness. ). No: Normal bowel sounds (increased) - Male Male : Deferred - Back Back: No CVA TTP - Derm Derm: Normal color, Warm and dry - Extremities Extremities: No tenderness to palpate, Normal ROM s pain, No edema, No calf tenderness / cord - Neuro Neuro: Alert and oriented X 3, No motor deficit, Normal speech Results - Vitals Vitals: Vital Signs - 24 hr 09/28/20 09/28/20 09/29/20 20:38 23:14 00:45 Temperature 35.9 C L 36.7 C 36.5 C Heart Rate 76 73 75 Respiratory 17 20 18 Rate Blood Pressure 146/71 H 160/69 H 154/70 H O2 Saturation 98 100 100 Oxygen O2 Source Room air - Labs Labs: Laboratory Tests 09/28/20 09/28/20 09/28/20 21:12 21:12 22:17 WBC 7.7 RBC 3.59 L Hgb 10.4 L Hct 33.0 L MCV 91.9 MCH 29.0 MCHC 31.5 L RDW 13.2 Plt Count 200 MPV 9.7 Neut # (Auto) 6.1 Lymph # (Auto) 0.9 L [place] # (Auto) 0.4 Eos # (Auto) 0.1 Baso # (Auto) 0.0 Absolute Nucleated RBC 0.00 Nucleated RBC % 0.0 Sodium 143 Potassium 3.7 Chloride 107 Carbon Dioxide 26 Anion Gap 10.0 BUN 38 H Creatinine 1.0 Estimated GFR (MDRD) 74 L Glucose 136 H Calcium 9.0 Total Bilirubin 0.5 AST 17 ALT 16 Alkaline Phosphatase 87 Total Protein 6.5 L Albumin 3.7 Globulin 2.8 Albumin/Globulin Ratio 1.3 Lipase 34 Urine Color YELLOW Urine Clarity CLEAR Urine pH 5.0 Ur Specific [place] 1.015 Urine Protein NEGATIVE Urine Glucose (UA) NEGATIVE Urine Ketones NEGATIVE Urine Occult Blood MODERATE H Urine Nitrite NEGATIVE Urine Bilirubin NEGATIVE Urine Urobilinogen 0.2 (NORMAL) Ur Leukocyte Esterase NEGATIVE Urine RBC 0-5 Urine WBC 0-3 Ur Squamous Epith Cells RARE Squamous Urine Bacteria None Seen Ur Microscopic Review INDICATED Urine Culture Comments NOT INDICATED - Rads (name of study) abd/pelvic CT Radiology: Prelim report reviewed (no acute process), See rad report PD MEDICAL DECISION MAKING - ED course Complexity details: reviewed results, re-evaluated patient (Given IV dextrose along with some fluids. He was having maintained high normal blood sugar subsequently for the next several hours. No signs of localized infection. He seems stable for discharge.), considered differential (His blood sugar was remaining low despite oral supplements. This was unusual for him. He had not had extra insulin and denied any decreased oral intake. He is having some abdominal pain so we will look for infection as a reason for the glucose utilization.), d/w patient Departure - Departure Disposition: 01 Home, Self Care Clinical Impression: Hypoglycemia, Abdominal cramping Condition: Stable Record reviewed to determine appropriate education?: Yes Instructions: ED Abdominal Pain Unkn Cause Follow-Up: Kyung Pimentel PA [Primary Care Provider] - Prescriptions: Docusate Sodium 100Mg Capsule [Colace 100Mg Capsule] 100 mg PO DAILY #20 cap Comments: Your blood and urine test as well as CT scan does not show any obvious acute infection significantly. You may have a small intestinal inflammation or irritation leading to the cramps and might of allowed for the blood sugar to be a little lower. No signs of significant infection. Stay well-hydrated. I would suggest decreasing your long-acting insulin (Lantus) by 5 units per dose; so just a little bit lower dose each time for the next week or so. See how your blood sugars are doing with that. Contact your primary care and discuss whether to maintain the lower dose or to resume your normal dose. Return if further symptoms develop. Consider adding mild stool softener daily for the next week or 2. Discharge Date/Time: 09/29/20 00:45
[2020-09-28] MEDS ORDERED: DEXTROSE 10% 250 ML IV STA (20:53)
[2020-09-28 21:18] LABS: BASOPHILS % (AUTO) 0.3 %; EOSINOPHILS # (AUTO) 0.1 10^3/uL (0.0-0.7); EOSINOPHILS % (AUTO) 1.6 %; HGB - HEMOGLOBIN 10.4 g/dL (14.0-18.0); LYMPHOCYTES # (AUTO) 0.9 10^3/uL (1.5-3.5); LYMPHOCYTES % (AUTO) 12.2 %; MEAN CORPUSCULAR HGB CONC 31.5 g/dL (32.0-36.0); MEAN CORPUSCULAR VOLUME 91.9 fL (80.0-94.0); MEAN PLATELET VOLUME 9.7 fL (7.4-11.4); MONOCYTES # (AUTO) 0.4 10^3/uL (0.0-1.0); MONOCYTES % (AUTO) 5.7 %; NEUTROPHILS # (AUTO) 6.1 10^3/uL (1.5-6.6); NEUTROPHILS % (AUTO) 79.8 %; PLT - PLATELET COUNT 200 10^3/uL (130-450); RED BLOOD COUNT 3.59 10^6/uL (4.70-6.10); RED CELL DISTRIBUTION WIDTH 13.2 % (12.0-15.0); WHITE BLOOD COUNT 7.7 x10^3/uL (4.8-10.8)
[2020-09-28] MEDS ORDERED: IOVERSOL 320 100 ML VIAL IVP ONE ×2 (21:20→22:08)
[2020-09-28 21:32] LABS: ALBUMIN 3.7 g/dL (3.2-5.5); ALBUMIN/GLOBULIN RATIO 1.3 (1.0-2.2); BILIRUBIN,TOTAL 0.5 mg/dL (0.2-1.0); POTASSIUM 3.7 mmol/L (3.5-5.0); TOTAL PROTEIN 6.5 g/dL (6.7-8.2)
[2020-09-28 22:29] LABS: BILIRUBIN,URINE NEGATIVE (NEGATIVE); GLUCOSE, URINE (UA) NEGATIVE (NEGATIVE); KETONES,URINE (UA) NEGATIVE (NEGATIVE); LEUKOCYTE ESTERASE, URINE NEGATIVE (NEGATIVE); NITRITE,URINE NEGATIVE (NEGATIVE); OCCULT BLOOD,URINE MODERATE (NEGATIVE); PROTEIN,URINE NEGATIVE (NEGATIVE); UROBILINOGEN,URINE 0.2 (NORMAL) E.U./dL (NORMAL)
[2020-09-28 22:42] LABS: CLARITY,URINE CLEAR (CLEAR); RBC,URINE 0-5 /HPF (0-5); SQUAMOUS EPITHELIAL CELL,UR RARE Squamous (<= Few); WBC,URINE 0-3 /HPF (0-3)
[2020-09-28 22:43] LABS: BACTERIA,URINE None Seen /HPF (None Seen)
[2020-09-29 00:47] VITALS: BP 154/70
--- NOTE | 2020-09-29 08:50 | ED Physician Documentation ---
ED Addendum - Addendum Addendum: Received a phone call from radiology concerning potential increased wall thickening of the gallbladder. Also possible mild thickening of the colon. Attempted to contact the patient, message left for call back at 8:50 AM. Patient will likely need an outpatient ultrasound for the gallbladder.
--- NOTE | 2020-09-29 08:52 | CT Report ---
PROCEDURE: Abdomen/Pelvis W INDICATIONS: lower abd pain CONTRAST: IV CONTRAST: Optiray 320 ml: 100 PO CONTRAST: *NO PO CONTRAST TECHNIQUE: After the administration of IV contrast, 5 mm thick sections acquired from the diaphragms to the symp hysis. 5 mm thick coronal and sagittal reformats were acquired. For radiation dose reduction, the f ollowing was used: automated exposure control, adjustment of mA and/or kV according to patient size. COMPARISON: None. FINDINGS: Image quality: Excellent. ABDOMEN: Lung bases: Lung bases are clear. Heart size is normal. Solid organs: Liver and spleen are mildly enlarged. Hepatic foci statistically representing cysts al though technically indeterminate due to small size. Gallbladder may contain dependent sludge versus m inimally radiopaque gravel calculi however no other CT evidence of acute cholecystitis. Further evalu ation with dedicated ultrasound could be performed. Biliary system is non dilated. Pancreas enhances normally. No adrenal nodules. Kidneys demonstra te normal size and enhancement, without hydronephrosis. Multiple simple appearing left renal cysts. At the upper pole of the left kidney, there is 1.1 cm hyperdense lesion, possibly cyst although techn ically indeterminate. Right renal cortical scarring Peritoneum and bowel: There is distended appearance of the stomach. No transition point to suggest butch wel obstruction. Possible mild long segment mural thickening involving the sigmoid colon, technically age indeterminate finding, although slightly more conspicuous since a remote prior study from 013. No additional more recent comparison studies and limited evaluation given decompressed status. N o adjacent inflammatory fat stranding. There is moderate stool. No free fluid or air. Nodes and vessels: No retroperitoneal or mesenteric adenopathy by size criteria. Aorta and inferior vena cava are normal in size. Miscellaneous: No ventral hernias. PELVIS: Genitourinary: Bladder wall thickness is normal. Miscellaneous: No inguinal hernias or adenopathy. Bones: No suspicious bony lesions. No vertebral body compression fractures. Diffuse osteopenia. Spo ndylitic and postsurgical changes. IMPRESSION: No evidence of bowel obstruction. Moderate stool. Distended appearance of the stomach which raise the possibility of gastroparesis or gastric outlet ob struction and recommend clinical correlation. Hyperdense lesion involving the upper pole left kidney, possibly hemorrhagic or hyperdense cyst howev er technically indeterminate and recommend further evaluation with nonemergent renal ultrasound as re commended in the preliminary study interpretation. Questionable gallbladder wall thickening versus mild sludge. This could be followed up with dedicated gallbladder ultrasound to exclude neoplasm as clinically warranted. Questionable sigmoid mural thick ening, raising the possibility of mild age indeterminate colitis. No adjacent inflammatory stranding. These findings personally discussed with Dr. Hutchison in the emergency department on the morning of 09/29/2020. Reviewed by: Lokesh Pantoja MD on 09/29/2020 8:50 AM PST Approved by: Lokesh Pantoja MD on 09/29/2020 8:50 AM PST Station ID: [id number]
== END 2020-09-29 00:45 | disposition home or self-care (01) ==
LOC: EDUNIT# → SUPCPDRO 20:33 → ED 20:33
DX: E11.649 Type 2 diabetes mellitus with hypoglycemia without coma (principal); Z79.4 Long term (current) use of insulin; R10.9 Unspecified abdominal pain; I10 Essential (primary) hypertension
CPT/HCPCS: 36415; 74177; 80053; 81001; 83690; 85025; 96365; 99284; J3490; Q9967; 81003; 87086

== ENCOUNTER 2020-10-06 12:51 | Outpatient (CLI) | payer MEDICARE ==
--- NOTE | 2020-10-06 16:30 | Ultrasound Report ---
PROCEDURE: Abdomen Limited INDICATIONS: THICKENING GALLBLADDER TECHNIQUE: Real-time scanning was performed of the abdominal and retroperitoneal organs, with image documentatio n. COMPARISON: CT abdomen pelvis 09/28/2020 FINDINGS: Liver: Liver is normal in size and homogeneous in echotexture. Gallbladder: There is appearance of minimal layering sludge within the gallbladder. Wall thickness is within normal limits measuring 1 mm. Biliary ducts: Intrahepatic bile ducts are non-dilated. Extrahepatic bile duct caliber measures 8 m m. Normal is 6-7 mm or less in diameter, or 10 mm or less post-cholecystectomy. Pancreas: Visualized portions of the pancreas are sonographically normal. Kidneys: Kidneys are normal in size and echotexture. Right kidney measures 10.6 cm long. There is a focus of decreased echogenicity consistent with a small cyst measuring 9 x 9 x 9 mm in the right ki dney. No hydronephrosis or nephrolithiasis. No solid masses. IMPRESSION: 1. No visualized gallbladder wall thickening. Mild layering sludge. 2. Common bile duct is at the upper limits of normal in size. No source of obstruction. Reviewed by: Traci Church MD on 10/06/2020 4:29 PM PST Approved by: Traci Church MD on 10/06/2020 4:29 PM PST Station ID: [id number]
== END 2020-10-06 12:52 | disposition home or self-care (01) ==
LOC: DI 12:51
PROVIDERS: ATTEND Internal Medicine
DX: K82.9 Disease of gallbladder, unspecified (principal)